=== PATIENT | male | born 1985 | race Caucasian/White ===

== ENCOUNTER 2021-07-22 04:58 | Day surgery (SDC) | payer BC ==
[2021-07-20 16:41] VITALS: BMI 27.7
[~2021-07-22 04:58] MED LIST: ACETAMINOPHEN 325 MG TABLET (FP) PO PRN; CYCLOPENTOLATE HCL 1% OPHTH SOLN 2 ML BOTTLE OP SCH; KETOROLAC TROMETHAMINE 0.5% EYE DROP 1 DROP DROPS OP SCH; OFLOXACIN 0.3% OPHTHALMIC SOLUTION 5 ML BOTTLE OP SCH; PHENYLEPHRINE 2.5% OPHTH SOLN 15 ML BOTTLE OP SCH; TROPICAMIDE 1% OPHTH SOLN 15 ML BOTTLE OP SCH
[2021-07-22] MEDS ORDERED: CHONDROITIN SU A/HYALUR SOD 1 KIT ONE (07:08)
[2021-07-22] MEDS ORDERED: POVIDONE-IODINE 5% OPHTHALMIC PREP 30 ML SOLUTION ONE (07:27)
[2021-07-22] MEDS ORDERED: TETRACAINE 0.5% OPHTH SOLN 2 ML BOTTLE ONE (07:27)
[2021-07-22] MEDS ORDERED: LIDOCAINE HCL/PF 1% SDV 5ML VIAL ONE (07:35)
[2021-07-22] MEDS ORDERED: PHENYLEPHRINE 2.5% OPHTH SOLN 15 ML BOTTLE ONE (10:41)
[2021-07-22] MEDS ORDERED: KETOROLAC TROMETHAMINE 0.5% EYE DROP 1 DROP DROPS ONE (10:42)
[2021-07-22] MEDS ORDERED: CYCLOPENTOLATE HCL 1% OPHTH SOLN 2 ML BOTTLE ONE (10:42)
[2021-07-22] MEDS ORDERED: OFLOXACIN 0.3% OPHTHALMIC SOLUTION 5 ML BOTTLE ONE (10:42)
[2021-07-22] MEDS ORDERED: TROPICAMIDE 1% OPHTH SOLN 15 ML BOTTLE ONE (10:42)
[2021-07-22] MEDS ORDERED: KETOROLAC TROMETHAMINE 0.5% EYE DROP 1 DROP DROPS OS ONE ×3 (10:49→10:59)
[2021-07-22] MEDS ORDERED: OFLOXACIN 0.3% OPHTHALMIC SOLUTION 5 ML BOTTLE OS ONE ×3 (10:49→10:59)
[2021-07-22] MEDS ORDERED: CYCLOPENTOLATE HCL 1% OPHTH SOLN 2 ML BOTTLE OS ONE ×3 (10:49→10:59)
[2021-07-22] MEDS ORDERED: TROPICAMIDE 1% OPHTH SOLN 15 ML BOTTLE OS ONE ×3 (10:49→10:59)
[2021-07-22] MEDS ORDERED: PHENYLEPHRINE 2.5% OPHTH SOLN 15 ML BOTTLE OS ONE ×3 (10:49→10:59)
[2021-07-22] MEDS ORDERED: MIDAZOLAM HCL 2 MG/2 ML SINGLE DOSE VIAL ONE ×2 (11:36)
[2021-07-22] MEDS ORDERED: TETRACAINE 0.5% OPHTH SOLN 2 ML BOTTLE OS ONE (11:55)
[2021-07-22] MEDS ORDERED: POVIDONE-IODINE 5% OPHTHALMIC PREP 30 ML SOLUTION OS ONE (11:56)
[2021-07-22] MEDS ORDERED: BSS (NA/CA/MG/K) BALANCED SALT SOLUTION OPHTH SOLN 15 ML BOTTLE OS ONE (12:03)
[2021-07-22] MEDS ORDERED: CHONDROITIN SU A/HYALUR SOD 1 KIT IO ONE (12:04)
[2021-07-22] MEDS ORDERED: LIDOCAINE HCL 1% PRESERVATIVE FREE - 30ML VIAL IO ONE (12:04)
[2021-07-22] MEDS ORDERED: EPINEPHrine/PF 1 MG/1 ML (1:1,000) AMPULE SQ ONE (12:10)
[2021-07-22 14:12] VITALS: BP 120/70; PULSE 71; TEMP 98.3
== END 2021-07-22 13:30 | disposition home or self-care (01) ==
LOC: JASU-SURG 04:58
PROVIDERS: ATTEND Ophthalmology
PROC: 08RJ3JZ Replacement of Right Lens with Synthetic Substitute, Percutaneous Approach (ICD-10-PCS; principal; 2021-07-22 12:00)
DX: H26.9 Unspecified cataract (principal)

== ENCOUNTER 2021-08-05 04:31 | Day surgery (SDC) | payer BC ==
[2021-08-04 11:14] VITALS: BMI 27.7
[2021-08-05] MEDS ORDERED: LIDOCAINE HCL/PF 1% SDV 5ML VIAL ONE (07:10)
[2021-08-05] MEDS ORDERED: CHONDROITIN SU A/HYALUR SOD 1 KIT ONE (07:10)
[2021-08-05] MEDS ORDERED: TETRACAINE 0.5% OPHTH SOLN 2 ML BOTTLE ONE (07:24)
[2021-08-05] MEDS ORDERED: POVIDONE-IODINE 5% OPHTHALMIC PREP 30 ML SOLUTION ONE (07:24)
[2021-08-05] MEDS ORDERED: PHENYLEPHRINE 2.5% OPHTH SOLN 15 ML BOTTLE ONE (09:08)
[2021-08-05] MEDS ORDERED: CYCLOPENTOLATE HCL 1% OPHTH SOLN 2 ML BOTTLE ONE (09:09)
[2021-08-05] MEDS ORDERED: TROPICAMIDE 1% OPHTH SOLN 15 ML BOTTLE ONE (09:09)
[2021-08-05] MEDS ORDERED: OFLOXACIN 0.3% OPHTHALMIC SOLUTION 5 ML BOTTLE ONE (09:09)
[2021-08-05] MEDS ORDERED: KETOROLAC TROMETHAMINE 0.5% EYE DROP 1 DROP DROPS ONE (09:09)
[2021-08-05] MEDS ORDERED: MIDAZOLAM HCL 2 MG/2 ML SINGLE DOSE VIAL ONE ×2 (10:59→11:06)
[2021-08-05] MEDS ORDERED: BSS (NA/CA/MG/K) BALANCED SALT SOLUTION OPHTH SOLN 15 ML BOTTLE OD ONE (11:06)
[2021-08-05] MEDS ORDERED: CHONDROITIN SU A/HYALUR SOD 1 KIT IO ONE (11:06)
[2021-08-05] MEDS ORDERED: EPINEPHrine 1:1,000 1,000 MCG/ML ML SQ ONE (11:06)
[2021-08-05] MEDS ORDERED: LIDOCAINE 1% P/F 10 MG/ML VIAL INF ONE (11:06)
[2021-08-05] MEDS ORDERED: TETRACAINE 0.5% OPHTH SOLN 2 ML BOTTLE OD ONE (11:06)
[2021-08-05] MEDS ORDERED: POVIDONE-IODINE 5% OPHTHALMIC PREP 30 ML SOLUTION OD ONE (11:06)
[2021-08-05] MEDS ORDERED: ACETAMINOPHEN 325 MG TABLET (FP) ONE (11:59)
[2021-08-05 12:50] VITALS: PULSE 77
[2021-08-05 13:13] VITALS: BP 118/74; TEMP 98.8
== END 2021-08-05 12:45 | disposition home or self-care (01) ==
LOC: JASU-SURG 04:31
PROVIDERS: ATTEND Ophthalmology
PROC: 08RJ3JZ Replacement of Right Lens with Synthetic Substitute, Percutaneous Approach (ICD-10-PCS; principal; 2021-08-05 11:00)
DX: H26.9 Unspecified cataract (principal)